=== PATIENT | male | born 1945 | race Hispanic/Latino ===

== ENCOUNTER 2021-09-13 07:18 | Observation (INO) | payer MEDICARE ==
[2021-09-08 13:00] LABS: BASOPHILS # (AUTO) 0.1 (0.0-0.1); EOSINOPHILS # (AUTO) 0.3 (0.0-0.4); HEMOGLOBIN 14.7 g/dL (14.0-18.0); LYMPHOCYTES # (AUTO) 2.1 (1.0-3.2); LYMPHOCYTES % 25.7 % (18.0-39.1); MEAN CORPUSCULAR HEMOGLOBIN 31.5 pg (28-32); MEAN CORPUSCULAR HGB CONC 32.7 g/dL (31-35); MEAN CORPUSCULAR VOLUME 96.6 fL (81-99); MONOCYTES # (AUTO) 0.8 (0.2-0.8); MONOCYTES % 9.4 % (4.4-11.3); NEUTROPHILS % 60.4 % (38.7-80.0); PLATELET COUNT 227 x10e3/uL (140-360); RED BLOOD COUNT 4.66 x10e6/uL (4.3-5.7); RED CELL DISTRIBUTION WIDTH 14.4 % (11.7-14.4)
[~2021-09-13] VITALS: Ht 167.6 cm; Wt 103.4 kg
[~2021-09-13 07:18] MED LIST: ACETAMINOPHEN325 M1 PO; ALBUTEROL0.63 MG/3 NEB; ALLOPURINOL100 MG PO; ASPIR 8181 MG; ASPIR 8181 MG PO; ASPIRIN81 MG; BRIMONIDINE TART5 ML OU; CELECOXIB 200 MG CAP ONE; CHANTIX1 MG PEG; CHANTIX1 MG PO; CITALOPRAM HBR20 MG PO; DEXAMETHASONE SOD PHOS 10 MG/1 ML VIAL ONE; DICYCLOMINE HCL10 MG PO; DORZOLAMIDE-TIM10 ML OP; FINASTERIDE5 MG PO; FLUTICASONE; FLUTICASONE P15.8 ML NS; FOLIC ACID1 MG; FUROSEMIDE40 MG; GABAPENTIN 300 MG CAP ONE; IBUPROFEN 800 MG; KLOR-CON 1010 MEQ; LATANOPROST; LATANOPROST OU; LATANOPROST2.5 ML; LEVOCETIRIZINE D5 MG PO; LISINOPRIL10 MG PO; NO LIST; PRESERVISION A1 EACH PO; REFRESH EYE DROPS; SIMVASTATIN20 MG PO; SODIUM CHLORIDE 0.9% 500ML 500 ML ONE; TAMSULOSIN HCL0.4 MG; TIMOLOL 0.5%-DO10 ML OU; TRANEXAMIC ACID 20 ML ONE; Vancomycin IV 1,000 MG ONE; [UNRECOGNIZED DRUG - OTHER]; ibupro
[2021-09-13] MEDS ORDERED: ROPIVACAINE 246.25 MG, EPINEPHRINE HCL 1:1000 1ML 0.5 MG, CLONIDINE HCL 0.08 MG, KETORO... INJ ONE ×5 (08:00)
[2021-09-13] MEDS ORDERED: HYDROCODONE/APAP 5MG-325MG TAB PO PRN (08:15)
[2021-09-13] MEDS ORDERED: ONDANSETRON HCL INJ 2MG/ML 2ML 2 MG/ML VIAL IV PRN (08:15)
[2021-09-13] MEDS ORDERED: DOCUSATE SODIUM 100 MG CAP PO PRN (08:15)
[2021-09-13] MEDS ORDERED: HYDROCODONE/APAP 7.5MG-325MG 1 EA TAB PO PRN (08:15)
[2021-09-13] MEDS ORDERED: DIPHENHYDRAMINE HCL INJ 50 MG/ML VIAL IV PRN (08:15)
[2021-09-13] MEDS ORDERED: KETOROLAC TROMETHAMINE 30 MG/ML VIAL IV PRN (08:15)
[2021-09-13] MEDS ORDERED: ACETAMINOPHEN 650 MG SUPP PR PRN (08:15)
[2021-09-13] MEDS ORDERED: FENTANYL CITRATE/PF 100MCG/2 ML INJ ONE (09:02)
[2021-09-13] MEDS ORDERED: ALBUTEROL/IPRATROPIUM 3 ML NEB NEB PRN (09:45)
[2021-09-13] MEDS ORDERED: SODIUM CHLORIDE 0.9% 1000ML 1,000 ML IV SCH (11:30)
[2021-09-13 12:04] VITALS: BP 146/75
[2021-09-13 12:27] VITALS: BP 146/75
[2021-09-13] MEDS ORDERED: SODIUM CHLORIDE 0.9% 250ML 250 ML ONE (13:27)
[2021-09-13] MEDS ORDERED: ACETAMINOPHEN 1000 MG/100 ML IV ONE (13:41)
[2021-09-13] MEDS ORDERED: ONDANSETRON HCL INJ 2MG/ML 2ML 2 MG/ML VIAL ONE (13:41)
[2021-09-13] MEDS ORDERED: POVIDONE IODINE 0.05% 0.05 % ML PO ONE (13:41)
[2021-09-13] MEDS ORDERED: GLYCOPYRROLATE INJ 0.2 MG/ML VIAL ONE (13:41)
[2021-09-13] MEDS ORDERED: SEVOFLURANE INHAL SOLN 250 ML PEN BTL ONE (13:41)
[2021-09-13] MEDS ORDERED: LIDOCAINE HCL 2% LOCAL INJ 5 ML SDV VIAL INJ ONE (13:41)
[2021-09-13] MEDS ORDERED: PROPOFOL IV EMULSION 10 MG/ML 20 ML VIAL ONE (13:41)
[2021-09-13 16:26] VITALS: BP 114/57
[2021-09-13] MEDS ORDERED: CELECOXIB 200 MG CAP PO SCH (17:00)
[2021-09-13] MEDS ORDERED: DORZOLAMIDE/TIMOLOL (OPTH SOL) 10 ML DRPETTE OP SCH (17:00)
[2021-09-13] MEDS ORDERED: LISINOPRIL 10 MG TAB PO SCH (17:00)
[2021-09-13] MEDS ORDERED: BRIMONIDINE TARTRATE (OPTH) 5 ML LIQD OP SCH (17:00)
[2021-09-13] MEDS ORDERED: ASPIRIN 325 MG TAB PO SCH (18:00)
[2021-09-13] MEDS ORDERED: LATANOPROST(OPTH) 2.5 ML BTL OU SCH (21:00)
[2021-09-13] MEDS ORDERED: ZOLPIDEM TARTRATE 5 MG TAB PO PRN (21:00)
[2021-09-13] MEDS ORDERED: SIMVASTATIN 20 MG TAB PO SCH (21:00)
[2021-09-14] MEDS ORDERED: ACETAMINOPHEN 1000 MG/100 ML IV PRN (08:15)
[2021-09-14] MEDS ORDERED: CITALOPRAM HYDROBROMIDE 20 MG TAB PO SCH (09:00)
== END 2021-09-13 18:02 | disposition home or self-care (01) ==
LOC: OR 07:18 → PACU V 08:53 → MED/SURG 11:30
PROVIDERS: ADMIT Specialist; ATTEND Specialist
DX: M17.11 Unilateral primary osteoarthritis, right knee (principal); F32.A Depression, unspecified; I10 Essential (primary) hypertension; I69.312 Visuospatial deficit and spatial neglect following cerebral infarction; G47.33 Obstructive sleep apnea (adult) (pediatric); E78.5 Hyperlipidemia, unspecified; Z79.82 Long term (current) use of aspirin; Z01.810 Encounter for preprocedural cardiovascular examination; Z01.818 Encounter for other preprocedural examination; Z20.822 Contact with and (suspected) exposure to COVID-19
CPT/HCPCS: 36415; 71046; 85025; 86850; 86900; 86920; 94799; C1713; G0378; J0171; J0690; J1100; J1885; J2001; J2405; J2795; J3010; J3370; J7040; J7050; U0002

== ENCOUNTER 2021-11-12 12:11 | Emergency (ER) | payer MEDICARE ==
[~2021-11-12] VITALS: Ht 167.6 cm; Wt 103.4 kg
[~2021-11-12 12:11] MED LIST changes: -CELECOXIB 200 MG CAP ONE; -DEXAMETHASONE SOD PHOS 10 MG/1 ML VIAL ONE; -GABAPENTIN 300 MG CAP ONE; -SODIUM CHLORIDE 0.9% 500ML 500 ML ONE; -TRANEXAMIC ACID 20 ML ONE; -Vancomycin IV 1,000 MG ONE
[2021-11-12] MEDS ORDERED: HYDROCODONE/APAP 5MG-325MG TAB PO ONE (12:45)
== END 2021-11-12 15:00 | disposition home or self-care (01) ==
LOC: ER 12:27
DX: M25.561 Pain in right knee (principal); I10 Essential (primary) hypertension; J44.9 Chronic obstructive pulmonary disease, unspecified; Z96.651 Presence of right artificial knee joint
CPT/HCPCS: 93971; 99282

== ENCOUNTER 2023-12-07 08:22 | Outpatient (RCR) | payer MEDICARE | END 2023-12-23 | LOC: PT 08:22 | PROVIDERS: ATTEND Specialist | DX: Z96.651 Presence of right artificial knee joint (principal); R53.81 Other malaise ==

== ENCOUNTER 2023-12-21 12:40 | Outpatient (RCR) | payer MEDICARE | END 2023-12-21 13:04 | disposition home or self-care (01) | LOC: PT 12:40 | PROVIDERS: ATTEND Specialist | DX: Z96.651 Presence of right artificial knee joint (principal); R53.81 Other malaise ==

== ENCOUNTER 2023-12-27 09:31 | Outpatient (RCR) | payer MEDICARE | END 2024-01-22 | LOC: PT 09:31 | PROVIDERS: ATTEND Specialist | DX: Z96.651 Presence of right artificial knee joint (principal); M62.81 Muscle weakness (generalized); R53.81 Other malaise ==

== ENCOUNTER 2024-02-21 14:53 | Outpatient (RCR) | payer MEDICARE | END 2024-02-22 | LOC: PT 14:53 | PROVIDERS: ATTEND Specialist | DX: M62.81 Muscle weakness (generalized) (principal); R53.81 Other malaise; Z96.651 Presence of right artificial knee joint ==

== ENCOUNTER → 2024-06-05 | Outpatient (REF) | payer MEDICARE | LOC: CT 14:55 | PROVIDERS: ATTEND Internal Medicine | DX: S09.93XA Unspecified injury of face, initial encounter (principal) | CPT/HCPCS: 70450 ==